=== PATIENT | female | born 1945 | race Hispanic/Latino ===

== ENCOUNTER 2016-07-17 06:17 | Outpatient (CLI) | payer MEDICARE ==
[2016-07-17 07:13] LABS: Blood Urea Nitrogen 25 mg/dL (7-17)
[2016-07-17] MEDS ORDERED: NACL ONE (07:21)
--- NOTE | 2016-07-17 10:08 | Cat Scan Report ---
CT ABDOMEN AND PELVIS WITH AND WITHOUT CONTRAST HISTORY: Calculus of kidney. TECHNIQUE: Helical CT before and after IV contrast. Sagittal and coronal reformatted images. COMPARISON: CT abdomen and pelvis with contrast dated 04/14/15. FINDINGS: Both kidneys demonstrate mild cortical thinning on the postcontrast images. There is no evidence for mass or significant cystic disease. There are 2 tiny cysts in the inferior right kidney measuring 5 mm. On the precontrast images there appears to be a punctate calyceal stone at the inferior pole of the right kidney on image 75, series 3. There is no evidence for associated hydronephrosis. The renal collecting systems are normal course and caliber. Normal bladder and UVJs. Cholecystectomy, hysterectomy and appendectomy changes are suspected. Previous ventral hernia repair changes are also identified which appear intact. No recurrent hernia is identified. The liver, pancreas, spleen, adrenal glands and bowel loops are within normal limits. There are mild diffuse aortic calcifications but no evidence for stenosis or aneurysm. The venous structures are patent. No evidence for ascites, inflammatory changes or adenopathy. Moderate degenerative disc disease is present throughout the lumbar region with straightening of the normal lordosis. No fracture or suspicious bone lesion is identified. IMPRESSION: Mild cortical thinning in both kidneys. Few tiny simple cysts in the inferior right kidney. Punctate calyceal stone in the inferior right kidney. No hydronephrosis. Surgical changes as described. No acute process appreciated. Degenerative changes of the thoracolumbar spine.
== END 2016-07-17 06:18 | disposition home or self-care (01) ==
LOC: CT 06:17
PROVIDERS: ATTEND Urology
DX: N20.1 Calculus of ureter (principal); N28.1 Cyst of kidney, acquired; I70.0 Atherosclerosis of aorta; M51.36 Other intervertebral disc degeneration, lumbar region; M47.895 Other spondylosis, thoracolumbar region; Z90.49 Acquired absence of other specified parts of digestive tract; Z90.710 Acquired absence of both cervix and uterus; Z98.890 Other specified postprocedural states
CPT/HCPCS: 36415; 74178; 82565; 84520; Q9967

== ENCOUNTER 2017-03-22 07:29 | Outpatient (CLI) | payer MEDICARE ==
--- NOTE | 2017-03-22 14:13 | Cat Scan Report ---
CT CHEST WITHOUT CONTRAST: HISTORY: Right lower lobe pulmonary nodule. TECHNIQUE: Helical CT with sagittal and coronal reformatted images. FINDINGS: Heart size is normal. There is no evidence of adenopathy within the mediastinum. Pulmonary gómez are free of any mass and the lungs are clear of infiltrates. Tiny 4 mm pulmonary nodule in the lateral left lower lobe is unchanged since 2011. The pleura is unremarkable. No masses involve the chest wall. No abnormalities are noted within the upper abdomen. The adrenal glands are normal. IMPRESSION: Unremarkable noncontrast CT chest. There is a tiny 4 mm pulmonary nodule in the left lower lobe which is unchanged since 2011. This has a benign appearance.
== END 2017-03-22 07:30 | disposition home or self-care (01) ==
LOC: CT 07:29
PROVIDERS: ATTEND Specialist
DX: R91.1 Solitary pulmonary nodule (principal); J98.9 Respiratory disorder, unspecified
CPT/HCPCS: 71250

== ENCOUNTER 2017-11-22 07:48 | Outpatient (CLI) | payer MEDICARE ==
--- NOTE | 2017-11-22 12:29 | Cat Scan Report ---
CT ABDOMEN PELVIS WITH AND WITHOUT CONTRAST: HISTORY: Lower abdominal pain. COMPARISON: 07/17/16. TECHNIQUE: Helical CT in 1.25mm intervals before and after IV contrast. Sagittal and coronal reconstructions. FINDINGS: Lung bases: Normal. Liver: Normal. Biliary system: Cholecystectomy. Mild post cholecystectomy biliary dilatation is noted. Pancreas: Normal. Spleen: Normal. Kidneys/ureters/bladder: Mild to moderate cortical thinning is present in both kidneys. No focal renal lesion, nephrolithiasis or hydronephrosis. The ureters are normal course and caliber. The bladder is unremarkable. Adrenal glands: Normal. Aorta: Mild diffuse calcifications. No stenosis, dissection or aneurysm. Intestines: Within normal limits. No evidence for mass, inflammation or abnormal dilatation. Appendix: Appendectomy changes are suspected. Pelvic viscera: Hysterectomy changes. Ascites: None. Adenopathy: None. Musculoskeletal: Moderate to severe thoracolumbar spondylosis. No fracture or suspicious bony lesion. There is been previous ventral wall hernia repair which appears intact. No recurrent hernia is detected. No fluid collection. IMPRESSION: No acute process is identified in the abdomen or pelvis. No clear explanation for lower abdominal pain. Surgical changes as described. Mild cortical thinning in both kidneys.
== END 2017-11-22 07:49 | disposition home or self-care (01) ==
LOC: CT 07:48
PROVIDERS: ATTEND Internal Medicine
DX: R10.30 Lower abdominal pain, unspecified (principal); I70.0 Atherosclerosis of aorta; M47.895 Other spondylosis, thoracolumbar region; N28.89 Other specified disorders of kidney and ureter; E11.9 Type 2 diabetes mellitus without complications; I25.10 Atherosclerotic heart disease of native coronary artery without angina pectoris; E78.5 Hyperlipidemia, unspecified; I10 Essential (primary) hypertension; E78.00 Pure hypercholesterolemia, unspecified; D64.9 Anemia, unspecified; E03.9 Hypothyroidism, unspecified; Z90.49 Acquired absence of other specified parts of digestive tract; Z90.710 Acquired absence of both cervix and uterus
CPT/HCPCS: 36415; 74178; 82565; 84520; Q9967